=== PATIENT | female | born 1995 | race Caucasian/White ===

== ENCOUNTER 2017-03-01 14:56 | Emergency (ER) | payer BC ==
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
[2017-03-01 16:42] VITALS: BP 92/53
== END 2017-03-01 16:42 | disposition home or self-care (01) ==
LOC: ER 14:56
DX: R53.1 Weakness (principal); X50.3XXA Overexertion from repetitive movements, initial encounter; Y93.11 Activity, swimming
CPT/HCPCS: 99284